=== PATIENT | female | born 1955 | race Two or more races ===

== ENCOUNTER 2017-07-17 13:51 | Emergency (ER) | payer MEDICAID ==
[~2017-07-17] VITALS: Ht 160 cm; Wt 63.5 kg
[~2017-07-17 13:51] MED LIST: SERT100T12 PO; SULF1TAB3 PO
--- NOTE | 2017-07-17 14:00 | NUR ---
AAOX3, CAME TO ER C/O PELVIC PAIN x 1 YEAR, AWAITING FOR Sx FOR UTERINE PROLAPSE. PAIN WORSE LAST WEEK. RR IS EVEN AND UNLABORED WITH NAD NOTED. SKIN IS WARM AND DRY. AWAITING MD FOR EVAL.
[2017-07-17 15:10] VITALS: BP 145/78
== END 2017-07-17 15:11 | disposition home or self-care (01) ==
LOC: ER 13:52
DX: N81.4 Uterovaginal prolapse, unspecified (principal); F32.9 Major depressive disorder, single episode, unspecified; I10 Essential (primary) hypertension; Z90.89 Acquired absence of other organs; Z88.1 Allergy status to other antibiotic agents
CPT/HCPCS: A4606; Z7610

== ENCOUNTER 2017-10-18 08:03 | Emergency (ER) | payer MEDICAID ==
[~2017-10-18] VITALS: Ht 160 cm; Wt 68.0 kg
[2017-10-18 08:12] VITALS: BP 138/85
[2017-10-18] MEDS ORDERED: IBUPROFEN 600 MG TABLET PO ONE (08:38)
[2017-10-18] MEDS: IBUPROFEN 600 MG TABLET PO ONE (08:40)
== END 2017-10-18 08:41 | disposition home or self-care (01) ==
LOC: ER 08:04
DX: J02.9 Acute pharyngitis, unspecified (principal); F32.9 Major depressive disorder, single episode, unspecified; I10 Essential (primary) hypertension; Z88.1 Allergy status to other antibiotic agents; Z90.89 Acquired absence of other organs
CPT/HCPCS: 99282; A4606; Z7610

== ENCOUNTER 2022-06-10 14:43 | Emergency (ER) | payer MEDICARE, OTHER ==
[~2022-06-10] VITALS: Ht 167.6 cm; Wt 74.8 kg
[2022-06-10] MEDS ORDERED: ACETAMINOPHEN 325 MG TABLET ONE (15:28)
[2022-06-10] MEDS ORDERED: ACETAMINOPHEN 325 MG TABLET PO ONE (15:30)
[2022-06-10] MEDS ORDERED: IBUP-1955 PO (17:01)
[2022-06-10] MEDS ORDERED: HYDR-4209 PO (17:01)
--- NOTE | 2022-06-10 17:34 | NUR ---
Patient discharged to home in stable condition. Written and verbal after care instructions given. Patient verbalizes understanding of instruction.
[2022-06-10 17:36] VITALS: BP 135/98
== END 2022-06-10 17:36 | disposition home or self-care (01) ==
LOC: ER 15:15
DX: S42.401A Unspecified fracture of lower end of right humerus, initial encounter for closed fracture (principal); S83.91XA Sprain of unspecified site of right knee, initial encounter; S09.90XA Unspecified injury of head, initial encounter; S00.31XA Abrasion of nose, initial encounter; W18.39XA Other fall on same level, initial encounter; Y93.89 Activity, other specified; Y92.89 Other specified places as the place of occurrence of the external cause; Y99.8 Other external cause status
CPT/HCPCS: 70450-TC; 73080-TC; 73564-TC